=== PATIENT | female | born 1990 | race American Indian/Alaskan Native ===

== ENCOUNTER 2017-06-26 08:32 | Emergency (ER) | payer OTHER ==
[2017-06-26] MEDS ORDERED: MOTRIN PO ONE (11:54)
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
[2017-06-26 14:21] VITALS: BP 116/71
== END 2017-06-26 14:19 | disposition home or self-care (01) ==
LOC: ED 08:32
DX: S76.011A Strain of muscle, fascia and tendon of right hip, initial encounter (principal); F17.200 Nicotine dependence, unspecified, uncomplicated; V49.59XA Passenger injured in collision with other motor vehicles in traffic accident, initial encounter; Y93.89 Activity, other specified; Y92.89 Other specified places as the place of occurrence of the external cause; Y99.8 Other external cause status
CPT/HCPCS: 99283

== ENCOUNTER 2018-06-26 11:53 | Emergency (ER) | payer OTHER ==
[2018-06-26 12:21] VITALS: BP 109/66
[2018-06-26] MEDS ORDERED: IBUPROFEN PO ONE (12:26)
--- NOTE | 2018-06-26 12:27 | Emergency Department Report ---
Blank Doc - Documentation Documentation: This is a 28 y.o. female that presents with pain to right hand and laceration on 4th proximal metacarpal. This initial assessment diagnostic orders/clinical plan/treatment(s) is/are subject to change based on patient's health status, clinical progression and re- assessment by fellow clinical providers in the ED. Further treatment and workup at subsequent clinical providers discretion. Patient/guardians urged not to elope from ED s their condition may be serious if not clinically assessed and managed. Initial orders include: XR of right hand Ice applied to hand. Given ibuprofen. MSE complete.
--- NOTE | 2018-06-26 13:27 | XRay Report ---
FINAL REPORT EXAM: XR HAND 3+V RT HISTORY: Right hand injury with deformity and lac COMPARISON: None. TECHNIQUE: Four views of the right hand FINDINGS: There is normal alignment without acute fracture or dislocation. The joint spaces are preserved. Ther e is mild dorsal soft tissue swelling. IMPRESSION: No acute bony abnormality of the right hand. Mild dorsal soft tissue swelling.
[2018-06-26] MEDS ORDERED: ULTRAM PO ONE (14:19)
[2018-06-26] MEDS ORDERED: BOOSTRIX IM ONE (14:19)
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
== END 2018-06-26 14:48 | disposition home or self-care (01) ==
LOC: ED 11:53
DX: S61.210A Laceration without foreign body of right index finger without damage to nail, initial encounter (principal); S60.221A Contusion of right hand, initial encounter; F17.200 Nicotine dependence, unspecified, uncomplicated; F12.90 Cannabis use, unspecified, uncomplicated; W22.01XA Walked into wall, initial encounter; Y93.89 Activity, other specified; Y92.89 Other specified places as the place of occurrence of the external cause; Y99.8 Other external cause status
CPT/HCPCS: 90471; 90715; 99284